=== PATIENT | male | born 2000 | race Hispanic/Latino ===

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

== ENCOUNTER 2025-05-29 19:22 | Emergency (ER) | payer BC ==
[~2025-05-29] VITALS: Ht 172.7 cm; Wt 69.9 kg
== END 2025-05-29 19:32 | disposition short-term general hospital (02) ==
LOC: FSED 19:27
DX: M54.9 Dorsalgia, unspecified (principal)